=== PATIENT | male | born 1980 | race African-American/Black ===

== ENCOUNTER 2017-02-12 14:39 | Emergency (ER) | payer MEDICAID ==
[~2017-02-12] VITALS: Ht 182.9 cm; Wt 87.0 kg
[2017-02-12 14:53] VITALS: BP 146/86
== END 2017-02-12 17:43 | disposition home or self-care (01) ==
LOC: ER 17:42
DX: R19.7 Diarrhea, unspecified (principal); F12.10 Cannabis abuse, uncomplicated
CPT/HCPCS: 87015; 87045; 87177; 87209; 87427; 87449; 87493; 99284; Z7610